=== PATIENT | female | born 1945 | race Caucasian/White ===

== ENCOUNTER 2020-03-29 22:13 | Emergency (ER) | payer OTHER ==
[~2020-03-29] VITALS: Ht 162.6 cm; Wt 81.2 kg
== END 2020-03-30 00:39 | disposition home or self-care (01) ==
LOC: ER 22:13
DX: I16.0 Hypertensive urgency (principal); I10 Essential (primary) hypertension; M54.2 Cervicalgia; F41.1 Generalized anxiety disorder

== ENCOUNTER 2021-12-19 12:57 | Outpatient (CLI) | payer OTHER | END 2021-12-19 13:38 | disposition home or self-care (01) | LOC: MAMO-SONO 12:57 | PROVIDERS: ATTEND Internal Medicine | DX: Z12.31 Encounter for screening mammogram for malignant neoplasm of breast (principal); R94.5 Abnormal results of liver function studies; E04.1 Nontoxic single thyroid nodule; R10.2 Pelvic and perineal pain ==

== ENCOUNTER 2024-12-06 13:42 | Emergency (ER) | payer OTHER ==
[~2024-12-06] VITALS: Ht 162.6 cm; Wt 77.1 kg
[2024-12-06] MEDS ORDERED: LOSARTAN POTASS50 MG PO (14:21)
[2024-12-06 17:04] LABS: HEMATOCRIT 37.3 % (36.0-45.00); HEMOGLOBIN 12.2 g/dL (12.0-15.00); MEAN CELL VOLUME 86.1 fL (80.00-100.00); MEAN CORPUSCULAR HEMOGLOBIN 28.1 pg (27.00-32.0); MEAN CORPUSCULAR HGB CONC 32.6 g/dl (32.0-36.0); PLATELET COUNT 217 K/uL (150-450); RED BLOOD COUNT 4.33 M/uL (4.00-6.00); RED CELL DISTRIBUTION WIDTH 14.1 % (11.5-14.5)
== END 2024-12-06 20:10 | disposition home or self-care (01) ==
LOC: ER 13:44
PROVIDERS: Emergency Medicine
DX: U07.1 COVID-19 (principal); R53.81 Other malaise